=== PATIENT | female | born 2000 | race Caucasian/White ===

== ENCOUNTER → 2019-02-12 | Outpatient (CLI) | payer OTHER ==
[2019-02-15 03:08] LABS: CHLAMYDIA TRACHOMATIS, NAA Negative (Negative); NEISSERIA GONORRHOEAE, NAA Negative (Negative)
== END | disposition home or self-care (01) ==
LOC: LAB SHORT 14:41 → LAB 14:41
PROVIDERS: Nurse Practitioner Women's Health
DX: Z11.3 Encounter for screening for infections with a predominantly sexual mode of transmission (principal)
CPT/HCPCS: 87491; 87591

== ENCOUNTER → 2024-07-29 | Outpatient (CLI) | payer BC | LOC: LAB SHORT 11:03 → LAB 11:03 | DX: O26.23 Pregnancy care for patient with recurrent pregnancy loss, third trimester (principal) | CPT/HCPCS: 87081; 87150 ==

== ENCOUNTER 2024-09-03 22:47 | Inpatient (IN) | payer BC ==
[~2024-09-03] VITALS: Ht 175.3 cm; Wt 75.5 kg
[2024-09-03 22:59] VITALS: BP 118/76
[2024-09-04] VITALS (44 sets, daily range): BP systolic 88–141; BP diastolic 52–90
[2024-09-04] MEDS ORDERED: Misoprostol 200 MCG Tab BC PRN (00:25)
[2024-09-04] MEDS ORDERED: Methylergonovine Maleate 0.2MG / ML 1ML Amp IM PRN ×2 (00:25→14:50)
[2024-09-04] MEDS ORDERED: Oxytocin 10 Unit / ML Vial IM PRN (00:25)
[2024-09-04] MEDS ORDERED: Carboprost Tromethamine 250 MCG/ML 1ML Amp IM PRN ×2 (00:25→14:55)
[2024-09-04] MEDS ORDERED: ePHEDrine Sulfate 50 MG/ML 1ML Injection XX PRN (00:25)
[2024-09-04] MEDS ORDERED: Misoprostol 200 MCG Tab PR PRN ×2 (00:25→14:50)
[2024-09-04] MEDS ORDERED: FentaNYL 2mcg/ml-Bup 0.1% Epd 250 ML EPI PRN (00:25)
[2024-09-04] MEDS ORDERED: OXYTOCIN/RINGER'S LACTATE 500 ML IV PRN (00:25)
[2024-09-04] MEDS ORDERED: Lactated Ringer's 1,000 ML IV PRN ×3 (00:25)
[2024-09-04] MEDS ORDERED: Ondansetron HCl 2 MG / ML 2ML Vial IV PRN (00:30)
[2024-09-04] MEDS ORDERED: Calcium Carbonate 500 MG Tab Chew PO PRN (00:30)
[2024-09-04] MEDS ORDERED: Tranexamic Acid 100 ML IV PRN (00:30)
[2024-09-04] MEDS ORDERED: Acetaminophen 500 MG Tab PO PRN (00:30)
[2024-09-04 07:54] LABS: BASOPHILS ABSOLUTE AUTO 0.03 K/mm3 (0.00-0.23); BASOPHILS PERCENT AUTO 0 % (0-2); EOSINOPHILS ABSOLUTE AUTO 0.03 K/mm3 (0.00-0.68); EOSINOPHILS PERCENT AUTO 0 % (0-6); Hematocrit 33.9 % (33.0-51.0); Hemoglobin 11.8 g/dL (11.5-16.0); IMMATURE GRAN ABSOLUTE AUTO 0.08 K/mm3 (0.00-0.10); IMMATURE GRAN PERCENT AUTO 1 % (0-1); LYMPHOCYTES ABSOLUTE AUTO 1.93 K/mm3 (0.84-5.20); LYMPHOCYTES PERCENT AUTO 12 % (21-46); MONOCYTES ABSOLUTE AUTO 1.01 K/mm3 (0.16-1.47); MONOCYTES PERCENT AUTO 6 % (4-13); Mean Corpuscular HGB 29.9 pg (26.0-34.0); Mean Corpuscular HGB Conc 34.8 g/dL (31.5-36.5); Mean Corpuscular Volume 86 fL (80-100); Mean Platelet Volume 11.2 fL (9.1-12.4); NEUTROPHILS ABSOLUTE AUTO 12.81 K/mm3 (1.96-9.15); NEUTROPHILS PERCENT AUTO 81 % (41-73); Platelet Count 233 K/mm3 (150-400); RDW Coefficient Variation 13.7 % (11.7-14.2); RDW Standard Deviation 42.8 fL (35.1-46.3); Red Blood Cell Count 3.94 M/mm3 (3.80-5.20); White Blood Cell Count 15.89 K/mm3 (4.00-11.30)
[2024-09-04] MEDS ORDERED: Benzocaine Topical Anesthetic Spray 60GM TOP PRN (14:50)
[2024-09-04] MEDS ORDERED: Lactated Ringer's 1,000 ML IV SCH (14:50)
[2024-09-04] MEDS ORDERED: Docusate Sodium 100 MG Cap PO PRN (14:55)
[2024-09-04] MEDS ORDERED: OXYTOCIN/RINGER'S LACTATE 500 ML IV SCH (14:55)
[2024-09-04] MEDS ORDERED: Witch Hazel/Glycerin PADS TOP PRN (14:55)
[2024-09-04] MEDS ORDERED: Rho(D) Immune Globulin 300 MCG / SYR IM ONE (15:00)
[2024-09-04] MEDS ORDERED: Ketorolac Tromethamine 30mg Vial IV PRN (15:05)
[2024-09-05 02:45] VITALS: BP 107/63
[2024-09-05] MEDS ORDERED: Ibuprofen 400 MG Tab PO PRN (08:00)
[2024-09-05 08:23] VITALS: BP 117/71
[2024-09-05] MEDS ORDERED: Lanolin Cream TOP SCH (08:45)
[2024-09-05] MEDS ORDERED: Prenatal Vit/FE Fumarate/FA 1 Tab PO SCH (09:00)
[2024-09-05 11:50] VITALS: BP 118/71
[2024-09-05 16:10] VITALS: BP 119/74
== END 2024-09-05 16:30 | disposition home or self-care (01) | DRG 807 ==
LOC: OBS 22:47 → BC 22:50 → OBS 09-04 03:50 → BC 09-04 03:53
PROVIDERS: ADMIT Advanced Practice Midwife
PROC: 10E0XZZ Delivery of Products of Conception, External Approach (ICD-10-PCS; principal; 2024-09-04)
PROC: 0KQM0ZZ Repair Perineum Muscle, Open Approach (ICD-10-PCS; 2024-09-04)
DX: O26.893 Other specified pregnancy related conditions, third trimester (principal); Z37.0 Single live birth; O48.0 Post-term pregnancy; O69.81X0 Labor and delivery complicated by cord around neck, without compression, not applicable or unspecified; O70.1 Second degree perineal laceration during delivery; Z3A.40 40 weeks gestation of pregnancy; Z67.21 Type B blood, Rh negative
CPT/HCPCS: 36415; 51702; 81003; 85025; 86850; 86900; 86901; A9270; J1885; J2405; J7120